=== PATIENT | female | born 1965 | race Caucasian/White ===

== ENCOUNTER → 2019-05-25 | Outpatient (CLI) | payer BC ==
[2015-08-11 22:50] VITALS: BP 119/67
--- NOTE | 2019-05-25 16:27 | RAD ---
EXAM: Maxillofacial bone CT without contrast. HISTORY: Congestion. TECHNIQUE: Computed tomographic images the maxillofacial bones were obtained without contrast. *One or more of the following individualized dose reduction techniques were utilized for this examination: 1. Automated exposure control. 2. Adjustment of the mA and/or kV according to patient size. 3. Use of iterative reconstruction technique. COMPARISON: None. FINDINGS: The paranasal sinuses are clear. The ostiomeatal units are patent. There is no significant nasal septal deviation. There is no sinus wall erosion or thickening. The orbits and mastoid air cells are unremarkable. The visualized portions the brain and calvarium are unremarkable. IMPRESSION: No evidence of acute or chronic sinusitis. Electronically signed by: Grecia Silva MD (05/25/2019 4:24 PM) [place] [id number]
== END | disposition home or self-care (01) ==
LOC: CT 15:05
PROVIDERS: ATTEND Physician Assistant Medical
DX: R09.81 Nasal congestion (principal)
CPT/HCPCS: 70486

== ENCOUNTER → 2020-07-28 | Outpatient (CLI) | payer BC ==
[2015-08-11 22:50] VITALS: BP 119/67
--- NOTE | 2020-07-30 16:35 | RAD ---
DATE: 07/28/2020 9:18 AM EXAM: MAMMO BREE SCREENING BILATERAL HISTORY: Screening COMPARISON: 02/27/2015 Bilateral CC and MLO views of the breasts were performed. Bilateral breast tomosynthesis was performed in CC and MLO projections. This study was interpreted with the benefit of Computerized Aided Detection (CAD). FINDINGS: Breast Density: FATTY The Breast Parenchyma is primarily fatty replaced. Breast parenchyma level density A. Stable circumscribed oval isodense 18 mm mass in the superior right breast at the 11:30 o'clock position 9 cm from the nipple. No suspicious masses, microcalcifications or architectural distortion is present to suggest malignancy in either breast. The visualized axillae are unremarkable. IMPRESSION: No mammographic evidence of malignancy BI-RADS CATEGORY: 2 BENIGN FINDING(S) RECOMMENDED FOLLOW-UP: 12M 12 MONTH FOLLOW-UP Annual screening mammography is recommended, unless clinically indicated sooner based on symptoms or change in physical exam. PQRS compliance statement: Patient information was entered into a reminder system with a target due date for the next mammogram. Mammography is a sensitive method for finding small breast cancers, but it does not detect them all and is not a substitute for careful clinical examination. A negative mammogram does not negate a clinically suspicious finding and should not result in delay in biopsying a clinically suspicious abnormality. "Our facility is accredited by the [employer] Mammography Program."
== END ==
LOC: MAMMO 09:08
PROVIDERS: ATTEND Physician Assistant Medical
DX: Z12.31 Encounter for screening mammogram for malignant neoplasm of breast (principal); N64.89 Other specified disorders of breast
CPT/HCPCS: 77063; 77067

== ENCOUNTER → 2021-11-20 | Outpatient (CLI) | payer BC ==
[2015-08-11 22:50] VITALS: BP 119/67
--- NOTE | 2021-11-20 15:57 | RAD ---
BILATERAL DIGITAL SCREENING 2-D AND 3-D MAMMOGRAM INDICATION: Routine screening. COMPARISON: July 28, 2020, February 24, 2015 Interpretation was made using CAD. FINDINGS: Breast Density: The breasts are almost entirely fatty. RIGHT BREAST: There is an unchanged oval circumscribed mass near the 12:00 location and measures 1.8 cm. No suspicious masses, calcifications or areas of distortion are seen. LEFT BREAST: No suspicious masses, calcifications or areas of architectural distortion are seen. IMPRESSION: 1. No imaging evidence of malignancy. ASSESSMENT: BI-RADS 2. Benign findings. RECOMMENDATION: Routine annual screening mammogram. The facility will notify the patient of the results via mail. Patient information will be entered int o the mammography reminder system with a target recall date for the next mammogram. A reminder letter will be generated by the facility. Electronically signed by: Danisha Flowers MD (11/20/2021 3:55 PM) [id number]
== END ==
LOC: MAMMO 09:05
PROVIDERS: ATTEND Physician Assistant Medical
DX: Z12.31 Encounter for screening mammogram for malignant neoplasm of breast (principal); N63.41 Unspecified lump in right breast, subareolar
CPT/HCPCS: 77063; 77067